=== PATIENT | male | born 1975 | race Caucasian/White ===

== ENCOUNTER 2017-04-14 18:26 | Emergency (ER) | payer OTHER | END 2017-04-14 18:35 | disposition home or self-care (01) | LOC: ER 18:26 | DX: S01.81XD Laceration without foreign body of other part of head, subsequent encounter (principal); F32.9 Major depressive disorder, single episode, unspecified; F41.9 Anxiety disorder, unspecified; F17.210 Nicotine dependence, cigarettes, uncomplicated; Z88.0 Allergy status to penicillin; Z88.2 Allergy status to sulfonamides; Z88.5 Allergy status to narcotic agent ==